=== PATIENT | male | born 1975 | race African-American/Black ===

== ENCOUNTER 2021-08-02 19:15 | Observation (INO) | payer MEDICAID ==
[~2021-08-02] VITALS: Ht 170.2 cm; Wt 176.9 kg
[2021-08-02] MEDS ORDERED: NITROGLYCERIN 0.4 MG SL TAB SL PRN ×2 (19:30→21:30)
[2021-08-02] MEDS ORDERED: ASPIRIN 325MG TAB PO ONE (19:30)
[2021-08-02 19:36] LABS: BASOPHILS % (AUTO) 0.1 % (0.0-5.0); EOSINOPHILS % (AUTO) 0.1 % (0.0-8.0); HEMATOCRIT 36.2 % (42-54); LYMPHOCYTES % (AUTO) 21.8 % (21.0-51.0); MEAN CORPUSCULAR HEMOGLOBIN 25.5 pg (27.0-33.0); MEAN CORPUSCULAR HGB CONC 31.8 g/dL (32.0-36.0); MEAN CORPUSCULAR VOLUME 80.3 fL (79-99); MONOCYTES % (AUTO) 6.2 % (3.0-13.0); NEUTROPHILS % (AUTO) 71.4 % (40.0-77.0); PLATELET COUNT (AUTO) 405 K/uL (130-400); RED BLOOD CELL COUNT(AUTO) 4.51 MIL/uL (4.50-6.20); RED CELL DISTRIBUTION WIDTH 14.2 % (11.0-15.5); WHITE BLOOD COUNT (AUTO) 11.4 K/uL (4.8-10.8)
[2021-08-02 19:48] LABS: CREATININE 1.2 mg/dL (0.5-1.5); POTASSIUM 3.7 mmol/L (3.5-5.1)
[2021-08-02 19:51] LABS: INR 1.01 (0.85-1.15)
[2021-08-02 19:53] LABS: PARTIAL THROMBOPLASTIN TIME 24.8 SEC (26.3-35.5)
[2021-08-02 19:57] LABS: ALBUMIN 3.3 g/dL (3.5-5.0); B-TYPE NATRIURETIC PEPTIDE 14 pg/mL (0-100); BILIRUBIN,TOTAL 0.4 mg/dL (0.2-1.0); MAGNESIUM 1.9 mg/dL (1.80-2.40); TOTAL PROTEIN, SERUM 8.1 g/dL (6.0-8.3)
[2021-08-02] MEDS ORDERED: IOHEXOL-350 75 ML VIAL IV ONE (20:02)
[2021-08-02] MEDS ORDERED: ONDANSETRON 4MG INJ IVP ONE (21:00)
[2021-08-02] MEDS ORDERED: 0.9% NACL 250ML 250 ML IV ONE (21:00)
[2021-08-02] MEDS ORDERED: MORPHINE 4 MG SYG IV ONE (21:00)
[2021-08-02 21:16] LABS: AMPHET/METH SCREEN,URINE NEGATIVE (NEGATIVE); BARBITURATE SCREEN, URINE NEGATIVE (NEGATIVE); BENZODIAZEPINES SCREEN,URINE NEGATIVE (NEGATIVE); CANNABINOID SCREEN,URINE POSITIVE (NEGATIVE); COCAINE SCREEN,URINE NEGATIVE (NEGATIVE); OPIATE SCREEN,URINE NEGATIVE (NEGATIVE); PHENCYCLIDINE SCREEN,URINE NEGATIVE (NEGATIVE)
[2021-08-02] MEDS ORDERED: ACETAMINOPHEN 325 MG TAB PO PRN ×2 (21:30)
[2021-08-02] MEDS ORDERED: ZOLPIDEM TARTRATE 5 MG TAB PO PRN (21:30)
[2021-08-02] MEDS ORDERED: LACTULOSE 20 GM/30 ML UDCUP PO PRN (21:30)
[2021-08-02] MEDS ORDERED: MAG/ALUM/SIMETH 30 ML UDCUP PO PRN (21:30)
[2021-08-02] MEDS ORDERED: HYDRALAZINE 20MG/ML VIAL IV PRN (21:30)
[2021-08-02] MEDS ORDERED: ONDANSETRON 4MG INJ IV PRN (21:30)
[2021-08-02] MEDS ORDERED: MORPHINE 2 MG SYG IV PRN (21:30)
[2021-08-02] MEDS ORDERED: PHARMACY COMMUNICATION MISC SCH (22:00)
[2021-08-02 22:23] LABS: CREATINE KINASE, TOTAL 195 U/L (21-232); MYOGLOBIN 43 ng/mL (10-92)
[2021-08-02 23:35] VITALS: BP 107/67
[2021-08-03] VITALS (7 sets, daily range): BP systolic 106–163; BP diastolic 64–94
[2021-08-03 04:02] LABS: HEMATOCRIT 32.3 % (42-54); MEAN CORPUSCULAR HEMOGLOBIN 26.2 pg (27.0-33.0); MEAN CORPUSCULAR HGB CONC 31.6 g/dL (32.0-36.0); MEAN CORPUSCULAR VOLUME 82.8 fL (79-99); RED BLOOD CELL COUNT(AUTO) 3.9 MIL/uL (4.50-6.20); RED CELL DISTRIBUTION WIDTH 14.4 % (11.0-15.5); WHITE BLOOD COUNT (AUTO) 9.1 K/uL (4.8-10.8)
[2021-08-03 04:29] LABS: CHOLESTEROL 100 mg/dL (<200); CREATINE KINASE, TOTAL 145 U/L (21-232); HDL CHOLESTEROL 36 mg/dL (29-71); LDL DIRECT 55 mg/dL (0-99); MYOGLOBIN 33 ng/mL (10-92); TRIGLYCERIDES 63 mg/dL (30-200)
[2021-08-03] MEDS: INSULIN HUMULIN R 100 UNIT/ML 3ML SQ SCH ×4 (07:30→21:00)
[2021-08-03] MEDS ORDERED: INSULIN HUMULIN R 100 UNIT/ML 3ML SQ SCH (07:30)
[2021-08-03] MEDS ORDERED: PHARMACY COMMUNICATION MISC SCH (08:30)
[2021-08-03] MEDS ORDERED: METOPROLOL TARTRATE 25 MG TAB PO SCH (09:00)
[2021-08-03] MEDS ORDERED: ENOXAPARIN SODIUM 40 MG/0.4 ML SYRINGE SQ SCH (09:00)
[2021-08-03] MEDS ORDERED: APIXABAN 5 MG TABLET PO SCH (09:00)
[2021-08-03] MEDS: ENOXAPARIN SODIUM 80 MG/0.8 ML SQ SCH ×2 (09:10→21:50)
[2021-08-03] MEDS: FAMOTIDINE 20MG TAB PO SCH ×2 (09:11→21:49)
[2021-08-03 09:31] LABS: CREATINE KINASE, TOTAL 138 U/L (21-232); MYOGLOBIN 44 ng/mL (10-92)
[2021-08-03 11:37] LABS: HEMOGLOBIN A1C 7.3 % (4.0-6.0)
[2021-08-03] MEDS ORDERED: TERB250T89 PO (17:28)
[2021-08-03] MEDS ORDERED: METO-391 PO (17:28)
[2021-08-03] MEDS ORDERED: INSU3INS3 SQ (17:28)
[2021-08-03] MEDS ORDERED: LISI20TA24 PO (17:28)
[2021-08-03] MEDS ORDERED: INSU200I SQ (17:28)
[2021-08-03] MEDS ORDERED: GLIP-162 PO (17:28)
[2021-08-03] MEDS ORDERED: ATOR80TA PO (17:28)
[2021-08-03] MEDS ORDERED: ISOS60TA77 PO (17:28)
[2021-08-03] MEDS ORDERED: GABA-529 PO (17:28)
[2021-08-03] MEDS ORDERED: INSU200I4 SQ (17:28)
[2021-08-03] MEDS ORDERED: PANT40TA54 PO (17:28)
[2021-08-03] MEDS: METOPROLOL TARTRATE 25 MG TAB PO SCH (21:49)
[2021-08-04 03:30] VITALS: BP 133/85
[2021-08-04] MEDS: INSULIN HUMULIN R 100 UNIT/ML 3ML SQ SCH ×2 (06:42→12:28)
[2021-08-04 08:09] VITALS: BP 143/93
[2021-08-04] MEDS ORDERED: ATORVASTATIN 40 MG TABLET PO SCH (09:00)
[2021-08-04] MEDS ORDERED: ASPIRIN 81MG CHEW TAB PO SCH (09:00)
[2021-08-04] MEDS ORDERED: ISOSORBIDE MONO 60MG SR TAB PO SCH (09:00)
[2021-08-04] MEDS ORDERED: PANTOPRAZOLE 40 MG TAB DR PO SCH (09:00)
[2021-08-04] MEDS ORDERED: GABAPENTIN 100 MG CAPSULE PO SCH (09:00)
[2021-08-04] MEDS ORDERED: LISINOPRIL 20 MG TABLET PO SCH (09:00)
[2021-08-04] MEDS: FAMOTIDINE 20MG TAB PO SCH (09:00)
[2021-08-04] MEDS: METOPROLOL TARTRATE 25 MG TAB PO SCH (09:36)
[2021-08-04] MEDS: ENOXAPARIN SODIUM 80 MG/0.8 ML SQ SCH (09:38)
[2021-08-04 11:33] VITALS: BP 139/85
== END 2021-08-04 13:40 | disposition home or self-care (01) ==
LOC: EDH 19:15 → EDHIP 21:07 → 4DH 23:35
PROVIDERS: ADMIT Internal Medicine; ATTEND Internal Medicine
DX: I20.0 Unstable angina (principal); Z20.822 Contact with and (suspected) exposure to COVID-19; I26.99 Other pulmonary embolism without acute cor pulmonale; I11.0 Hypertensive heart disease with heart failure; I50.9 Heart failure, unspecified; I25.2 Old myocardial infarction; E11.40 Type 2 diabetes mellitus with diabetic neuropathy, unspecified; E66.01 Morbid (severe) obesity due to excess calories; I21.9 Acute myocardial infarction, unspecified; D68.59 Other primary thrombophilia; D64.9 Anemia, unspecified; E66.9 Obesity, unspecified; G47.33 Obstructive sleep apnea (adult) (pediatric); Z86.711 Personal history of pulmonary embolism; Z86.718 Personal history of other venous thrombosis and embolism; Z79.01 Long term (current) use of anticoagulants; Z79.82 Long term (current) use of aspirin; Z68.44 Body mass index [BMI] 60.0-69.9, adult
CPT/HCPCS: 36415 ×2; 71045; 71275; 80053; 80061 ×2; 80305; 82550 ×5; 82948 ×6; 83036; 83735; 83874 ×5; 83880 ×2; 84484 ×5; 85025; 85027; 85378 ×2; 85610; 85730; 87635; 93005 ×3; 93306; 93356; 93970; 96372 ×2; 96374; 96375; 99291; G0378 ×40; J1650 ×3; J1815 ×2; J2270; J2405; J3490; Q9967

== ENCOUNTER 2021-08-14 05:14 | Emergency (ER) | payer MEDICAID ==
[~2021-08-14] VITALS: Ht 167.6 cm; Wt 172.4 kg
[~2021-08-14 05:14] MED LIST: ATOR80TA PO; GABA-529 PO; GLIP-162 PO; INSU200I SQ; INSU200I4 SQ; ISOS60TA77 PO; LISI20TA24 PO; METO-391 PO; PANT40TA54 PO; TERB250T51 PO
[2021-08-14 06:15] LABS: BASOPHILS % (AUTO) 0.2 % (0.0-5.0); EOSINOPHILS % (AUTO) 2.8 % (0.0-8.0); LYMPHOCYTES % (AUTO) 18.5 % (21.0-51.0); MEAN CORPUSCULAR HEMOGLOBIN 25.6 pg (27.0-33.0); MEAN CORPUSCULAR HGB CONC 31.7 g/dL (32.0-36.0); MEAN CORPUSCULAR VOLUME 80.9 fL (79-99); MONOCYTES % (AUTO) 5.5 % (3.0-13.0); NEUTROPHILS % (AUTO) 72.4 % (40.0-77.0); PLATELET COUNT (AUTO) 355 K/uL (130-400); RED BLOOD CELL COUNT(AUTO) 4.45 MIL/uL (4.50-6.20); RED CELL DISTRIBUTION WIDTH 14.1 % (11.0-15.5); WHITE BLOOD COUNT (AUTO) 8.9 K/uL (4.8-10.8)
[2021-08-14 06:31] LABS: ALBUMIN 3.3 g/dL (3.5-5.0); BILIRUBIN,TOTAL 0.6 mg/dL (0.2-1.0); CREATININE 0.8 mg/dL (0.5-1.5); TOTAL PROTEIN, SERUM 7.9 g/dL (6.0-8.3)
[2021-08-14 06:45] LABS: PROTHROMBIN TIME 10.9 SEC (9.6-11.6)
[2021-08-14 06:46] LABS: PARTIAL THROMBOPLASTIN TIME 25.4 SEC (26.3-35.5)
[2021-08-14] MEDS ORDERED: APIXABAN 5 MG TABLET PO SCH (07:00)
[2021-08-14] MEDS ORDERED: APIX5TAB PO (07:07)
[2021-08-14] MEDS ORDERED: APIXABAN 2.5 MG TABLET PO ONE (07:16)
[2021-08-14 10:56] VITALS: BP 140/80
== END 2021-08-14 07:21 ==
LOC: EDH 05:14
DX: E11.40 Type 2 diabetes mellitus with diabetic neuropathy, unspecified (principal); R07.89 Other chest pain; E66.01 Morbid (severe) obesity due to excess calories; Z68.44 Body mass index [BMI] 60.0-69.9, adult; I11.0 Hypertensive heart disease with heart failure; I50.9 Heart failure, unspecified; I25.2 Old myocardial infarction; Z86.718 Personal history of other venous thrombosis and embolism; Z88.1 Allergy status to other antibiotic agents; Z79.4 Long term (current) use of insulin; Z79.899 Other long term (current) drug therapy
CPT/HCPCS: 36415; 71045; 80053; 84484; 85025; 85610; 85730; 93005; 93970

== ENCOUNTER 2022-03-16 06:00 | Emergency (ER) | payer MEDICAID ==
[~2022-03-16] VITALS: Ht 170.2 cm; Wt 163.3 kg
[~2022-03-16 06:00] MED LIST changes: +APIX5TAB PO; -TERB250T51 PO; +TERB250T89 PO
[2022-03-16 06:36] LABS: BASOPHILS % (AUTO) 0.1 % (0.0-5.0); LYMPHOCYTES % (AUTO) 24.2 % (21.0-51.0); MEAN CORPUSCULAR HEMOGLOBIN 26.1 pg (27.0-33.0); MEAN CORPUSCULAR HGB CONC 32.8 g/dL (32.0-36.0); MEAN CORPUSCULAR VOLUME 79.4 fL (79-99); MONOCYTES % (AUTO) 5.6 % (3.0-13.0); NEUTROPHILS % (AUTO) 69.7 % (40.0-77.0); PLATELET COUNT (AUTO) 382 K/uL (130-400); RED BLOOD CELL COUNT(AUTO) 4.91 MIL/uL (4.50-6.20); RED CELL DISTRIBUTION WIDTH 14.3 % (11.0-15.5); WHITE BLOOD COUNT (AUTO) 8.2 K/uL (4.8-10.8)
[2022-03-16 06:41] LABS: APPEARANCE,URINE CLEAR (CLEAR); BILIRUBIN,URINE NEGATIVE (NEGATIVE); COLOR,URINE YELLOW (YELLOW); GLUCOSE, URINE (UA) NEGATIVE (NEGATIVE); KETONES,URINE NEGATIVE (NEGATIVE); LEUKOCYTE ESTERASE ,URINE NEGATIVE (NEGATIVE); NITRATE,URINE NEGATIVE (NEGATIVE); OCCULT BLOOD,URINE NEGATIVE (NEGATIVE); PROTEIN,URINE NEGATIVE (NEGATIVE); UROBILINOGEN,URINE 0.2 mg/dL (0.2-1.0)
[2022-03-16 06:44] LABS: ALBUMIN 3.5 g/dL (3.5-5.0); BILIRUBIN,TOTAL 0.8 mg/dL (0.2-1.0); CREATININE 0.9 mg/dL (0.5-1.5); POTASSIUM 3.8 mmol/L (3.5-5.1); TOTAL PROTEIN, SERUM 8.2 g/dL (6.0-8.3)
[2022-03-16 08:50] VITALS: BP 136/85
== END 2022-03-16 11:20 | disposition home or self-care (01) ==
LOC: EDH 06:00
DX: E11.40 Type 2 diabetes mellitus with diabetic neuropathy, unspecified (principal); R07.89 Other chest pain; I11.0 Hypertensive heart disease with heart failure; I50.9 Heart failure, unspecified; I25.10 Atherosclerotic heart disease of native coronary artery without angina pectoris; Z88.1 Allergy status to other antibiotic agents; Z79.84 Long term (current) use of oral hypoglycemic drugs; Z79.899 Other long term (current) drug therapy
CPT/HCPCS: 36415; 71045; 80053; 81003; 83880; 84484; 85025; 85378; 93005